=== PATIENT | male | born 1950 | race Caucasian/White ===

== ENCOUNTER 2022-02-14 10:36 | Inpatient (IN) | payer MEDICARE ==
[~2022-02-14] VITALS: Ht 175.3 cm; Wt 81.0 kg
[2022-02-14 12:01] LABS: INFLUENZA A PATIENT NEGATIVE (NEGATIVE); INFLUENZA B PATIENT NEGATIVE (NEGATIVE)
[2022-02-14 12:01] LABS: BASO # 0.1 x10^3/uL (0.0-0.2); BASO % 1 % (0-3); EOS # 0.4 x10^3/uL (0.0-0.7); EOS % 5 % (0-3); HEMOGLOBIN 15.2 g/dL (13.0-17.5); LYMPH # 2.1 x10^3/uL (1.0-4.8); LYMPH % 30 % (24-48); MEAN CORPUSCULAR HEMOGLOBIN 30 pg (25-35); MEAN CORPUSCULAR HGB CONC 34 g/dL (31-37); MEAN CORPUSCULAR VOLUME 89 fL (79-100); MONO # 0.4 x10^3/uL (0.0-1.1); MONO % 6 % (0-9); NEUT # 4.1 x10^3uL (1.8-7.7); NEUT % 58 % (31-73); PLATELET COUNT 197 x10^3/uL (140-400); RED BLOOD COUNT 5.06 x10^6/uL (4.30-5.70); RED CELL DISTRIBUTION WIDTH 14.4 % (11.5-14.5); WHITE BLOOD COUNT 7.1 x10^3/uL (4.0-11.0)
[2022-02-14 12:06] LABS: ANION GAP 13 (6-14); BLOOD UREA NITROGEN 16 mg/dL (8-26); BUN/CREATININE RATIO 15 (6-20); CALCIUM 9.5 mg/dL (8.5-10.1); CARBON DIOXIDE 25 mmol/L (21-32); CHLORIDE 104 mmol/L (98-107); CREATININE 1.1 mg/dL (0.7-1.3); GFR 65.6; GLUCOSE 208 mg/dL (70-99); POTASSIUM 4.6 mmol/L (3.5-5.1); SODIUM 142 mmol/L (136-145)
[2022-02-14 12:08] LABS: PHENY 0.8 mcg/mL (10.0-20.0)
[2022-02-14 12:14] LABS: VAL ACID < 3 mcg/mL (50-100)
[2022-02-14] MEDS ORDERED: ACET500T68 PO (12:17)
[2022-02-14] MEDS ORDERED: GABA-586 PO (12:17)
[2022-02-14] MEDS ORDERED: METF10007 PO (12:17)
[2022-02-14] MEDS ORDERED: [UNRECOGNIZED DRUG - CODE] PO (12:17)
[2022-02-14] MEDS ORDERED: CHOL10004 PO (12:17)
[2022-02-14] MEDS ORDERED: DIPH1TAB PO (12:17)
[2022-02-14] MEDS ORDERED: EMPA10TA3 PO (12:17)
[2022-02-14] MEDS ORDERED: NITR100C62 PO (12:17)
[2022-02-14] MEDS ORDERED: MULT-460 PO (12:17)
[2022-02-14] MEDS ORDERED: LISI40TA6 PO (12:17)
[2022-02-14] MEDS ORDERED: LOPE2TAB27 PO (12:17)
[2022-02-14] MEDS ORDERED: LOVA20TA2 PO (12:17)
[2022-02-14 12:24] LABS: ALBUMIN 3.9 g/dL (3.4-5.0); ALBUMIN/GLOBULIN RATIO 1.4 (1.0-1.7); ALK PHOS 81 U/L (46-116); ALT (SGPT) 61 U/L (16-63); AST (SGOT) 29 U/L (15-37); MAGNESIUM 2.2 mg/dL (1.8-2.4); TOTAL BILIRUBIN 0.6 mg/dL (0.2-1.0); TOTAL PROTEIN 6.7 g/dL (6.4-8.2)
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
[2022-02-14 13:04] LABS: CLARITY,URINE CLEAR; COLOR,URINE YELLOW; GLUCOSE,URINE >=1000 mg/dL (NEG)
[2022-02-14 13:05] LABS: BACTERIA,URINE 0 /HPF (0-FEW); NITRITE,URINE NEG (NEG); RBC,URINE RARE /HPF (0-2); UROBILINOGEN,URINE 0.2 mg/dL (0.2 mg/dL); WBC,URINE 0 /HPF (0-4)
[2022-02-14] MEDS ORDERED: ACETAMINOPHEN 500 MG TABLET PO PRN (14:30)
[2022-02-14] MEDS ORDERED: MAG HYDROX/AL HYDROX/SIMETH 30 ML ORAL.SUSP PO PRN (14:30)
[2022-02-14] MEDS ORDERED: METHYL SALICYLATE/MENTHOL TOPICAL OINTMENT 57GM TUBE. TP PRN (14:30)
[2022-02-14] MEDS ORDERED: DIPHENOXYLATE/ATROPINE TABLET. PO PRN (14:30)
[2022-02-14] MEDS ORDERED: MAGNESIUM HYDROXIDE 2,400 MG/30 ML ORAL.SUSP. PO PRN (14:30)
[2022-02-14] MEDS ORDERED: LOPERAMIDE 2 MG CAPSULE PO PRN (15:00)
[2022-02-14 16:44] VITALS: BP 129/68
[2022-02-14] MEDS: LACTASE 3,000 UNIT TABLET PO SCH (17:06)
[2022-02-14] MEDS: metFORMIN 500 MG TABLET PO SCH (17:07)
[2022-02-14] MEDS: GABAPENTIN 300 MG CAPSULE. PO SCH (17:07)
--- NOTE | 2022-02-14 20:33 | EKG ---
[address] [address] Test Date: 2022-02-14 Test Time: 10:55:15 Pat Name: SUKHJINDER REICH Department: Room: [address] [place] [address] Gender: M Top Knitter: : 1950 Requested By: CHRISTINE CLARK Order Number: [id number] Reading MD: Felipe Oquendo MD Measurements Intervals [place] Rate: 99 P: 45 ME: 144 QRS: 19 QRSD: 76 T: -2 QT: 322 QTc: 413 Interpretive Statements SINUS RHYTHM Electronically Signed On 02-18-2022 9:06:25 CDT by Felipe Oquendo MD
[2022-02-14] MEDS: ATORVASTATIN CALCIUM 10 MG TABLET. PO SCH (21:00)
[2022-02-14] MEDS ORDERED: NITROFURANTOIN MONOHYD/M-CRYST 100 MG CAPSULE. PO SCH (21:00)
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
[2022-02-15 02:10] LABS: THYROXINE 7.9 ug/dL (4.5-12.0)
[2022-02-15 04:10] LABS: HEMOGLOBIN A1C 8.2 % (4.8-5.6)
[2022-02-15 06:01] VITALS: BP 151/93
[2022-02-15] MEDS: MULTIVITAMIN with MINERAL TABLET. PO SCH (08:25)
[2022-02-15] MEDS: LACTASE 3,000 UNIT TABLET PO SCH ×3 (08:25→17:29)
[2022-02-15] MEDS: EMPAGLIFLOZIN 10 MG TABLET. PO SCH (08:25)
[2022-02-15] MEDS: CHOLECALCIFEROL (VITAMIN D3) 1,000 UNIT TABLET PO SCH (08:25)
[2022-02-15] MEDS: LISINOPRIL 20 MG TABLET PO SCH (08:25)
[2022-02-15] MEDS: metFORMIN 500 MG TABLET PO SCH ×2 (08:25→17:29)
[2022-02-15] MEDS: GABAPENTIN 300 MG CAPSULE. PO SCH ×3 (08:28→17:29)
[2022-02-15 15:00] VITALS: BP 125/77
[2022-02-15 19:29] LABS: PHENOBARB < 1.0 mcg/mL (15.0-40.0)
[2022-02-15 19:36] LABS: CHOLESTEROL/HDL RATIO 3.1; THYROID STIM HORMONE (TSH) 0.701 uIU/mL (0.358-3.740)
[2022-02-15] MEDS: ATORVASTATIN CALCIUM 10 MG TABLET. PO SCH (20:10)
--- NOTE | 2022-02-15 21:45 | PDOC ---
Exam Note: Leonidas Note: Late entry for 02/14/2022. Please also refer to the separate dictated note~for this date of service dictated separately.~Patient seen individually. Discussed the patient with Nursing staff reviewed the chart.~Reviewed interim history and current functioning. Reviewed vital signs,~Labs/ Radiology~and current medic ations noted below. Continue current treatment with the changes noted in the dictated addendum note Assessment: Vital Signs/I&O: Vital Signs Date Time Temp Pulse Resp B/P (MAP) Pulse Ox O2 Delivery O2 Flow Rate FiO2 02/15/22 08:25 85 151/93 02/15/22 06:01 98.5 20 96 Room Air I & O 02/14/22 02/14/22 02/15/22 15:00 23:00 07:00 Intake Total 380 ml Balance 380 ml Labs: Laboratory Tests Test 02/15/22 07:56 02/15/22 11:29 Glucose (Fingerstick) 175 mg/dL (70-99) H 194 mg/dL (70-99) H Current Medications: Meds: Current Medications Medications (Trade) Dose Ordered Sig/Hetal Route PRN Reason Start Time Stop Time Status Last Admin Dose Admin Vitamin D (Vitamin D3) 5,000 unit DAILY PO 02/15/22 09:00 02/15/22 08:25 Empaglifozin (Jardiance) 10 mg DAILY PO 02/15/22 09:00 02/15/22 08:25 Lisinopril (Prinivil) 40 mg DAILY PO 02/15/22 09:00 02/15/22 08:25 Multivitamins/ Calcium (Thera-M Plus) 1 tab DAILY PO 02/15/22 09:00 02/15/22 08:25 I have reviewed the current psychotropics carefully including drug interactions. Risk benefit ratio favors no change other than as noted in my dictated progress note. Diagnosis: Problems: (1) Psychotic disorder (2) Impulse control disorder ELADIO NUNEZ MD February 15, 2022 21:45
--- NOTE | 2022-02-15 21:46 | PDOC ---
Exam Note: Leonidas Note: Please also refer to the separate dictated note~for this date of service dictated separately.~Patient seen individually. Discussed the patient with Nursing staff reviewed the chart.~Reviewed interim history and current functioning. Reviewed vital signs,~Labs/ Radiology~and current medications noted below. Continue current treatment with the changes noted in the dictated addendum note Assessment: Vital Signs/I&O: Vital Signs Date Time Temp Pulse Resp B/P (MAP) Pulse Ox O2 Delivery O2 Flow Rate FiO2 02/15/22 08:25 85 151/93 02/15/22 06:01 98.5 20 96 Room Air I & O 02/14/22 02/14/22 02/15/22 15:00 23:00 07:00 Intake Total 380 ml Balance 380 ml Labs: Laboratory Tests Test 02/15/22 07:56 02/15/22 11:29 Glucose (Fingerstick) 175 mg/dL (70-99) H 194 mg/dL (70-99) H Current Medications: Meds: Current Medications Medications (Trade) Dose Ordered Sig/Hetal Route PRN Reason Start Time Stop Time Status Last Admin Dose Admin Vitamin D (Vitamin D3) 5,000 unit DAILY PO 02/15/22 09:00 02/15/22 08:25 Empaglifozin (Jardiance) 10 mg DAILY PO 02/15/22 09:00 02/15/22 08:25 Lisinopril (Prinivil) 40 mg DAILY PO 02/15/22 09:00 02/15/22 08:25 Multivitamins/ Calcium (Thera-M Plus) 1 tab DAILY PO 02/15/22 09:00 02/15/22 08:25 I have reviewed the current psychotropics carefully including drug interactions. Risk benefit ratio favors no change other than as noted in my dictated progress note. Diagnosis: Problems: (1) Impulse control disorder (2) Psychotic disorder ELADIO NUNEZ MD February 15, 2022 21:46
[2022-02-16 06:23] VITALS: BP 101/65
[2022-02-16] MEDS: GABAPENTIN 300 MG CAPSULE. PO SCH ×3 (08:24→17:01)
[2022-02-16] MEDS: LISINOPRIL 20 MG TABLET PO SCH (08:24)
[2022-02-16] MEDS: CHOLECALCIFEROL (VITAMIN D3) 1,000 UNIT TABLET PO SCH (08:24)
[2022-02-16] MEDS: LACTASE 3,000 UNIT TABLET PO SCH ×3 (08:25→17:01)
[2022-02-16] MEDS: metFORMIN 500 MG TABLET PO SCH ×2 (08:25→17:01)
[2022-02-16] MEDS: MULTIVITAMIN with MINERAL TABLET. PO SCH (08:25)
[2022-02-16] MEDS: EMPAGLIFLOZIN 10 MG TABLET. PO SCH (08:25)
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
[2022-02-16 15:00] VITALS: BP 124/73
[2022-02-16] MEDS: ATORVASTATIN CALCIUM 10 MG TABLET. PO SCH (20:23)
--- NOTE | 2022-02-16 22:13 | PDOC ---
Exam Note: Leonidas Note: This note is a late entry for 02/15/2022 covers elements not covered in my initial note. Subjective: The patient was reviewed at treatment team meeting individually in the morning on 02/15/2022 with Leighann Isaac, Lianne Baires (pediatric social worker), Yamilka, activity therapy, and Atiya SCHNEIDER, discussed and reviewed the chart. The patient slept 9-1/4 hours previous night. Reviewed the patients psychosocial history, diagnoses, current psychotropics medications at length. Reportedly the patient used to work as a recovery collector for the [email or web address] and he lost his leg on the job due to an injury. Apparently he is on Workmens Compensation as a history of developmental delay. There is a question whether he had a history of seizure disorder but this is not confirmed. There is notation in his history of an intracranial lesion but it was reportedly a benign tumor with no mass effects. UA was positive in the ER. He received Macrobid later, culture was negative. He remains on medications for his diabetes and hypertension. Also met with the patient individually in his room at length in the evening. Review of Systems: Hard of hearing. No CV, , pulmonary, eye, ENT system symptoms on review. Overall no overt behaviors have been noted including sexually inappropriate and also disruptive behaviors that prompted that referr al. Mental Status Exam: Patient is oriented to himself and situation. Speech is coherent. Abstraction fair. Computation impaired. Language function intact. Attention span short. Mood and affect remains somewhat gregarious but controlled. No suicidal or homicidal ideation. Laboratory Data: Reviewed. Impression: Major depressive disorder. Impulse control disorder rule out bipolar disorder unspecified. Plan: From a psychiatric standpoint, we will continue to monitor the patients baseline. He is on no psychotropics for now but we will Zyprexa 2.5 mg q.2h. p.r.n., psychosis and agitation, max 10 mg in 24 hours for now. If impulse control problems are problematic given his overall history noted above, we may consider using Depakote. We will make decisions post baseline assessment. Assessment: Vital Signs/I&O: Vital Signs Date Time Temp Pulse Resp B/P (MAP) Pulse Ox O2 Delivery O2 Flow Rate FiO2 02/16/22 15:00 97.5 82 20 124/73 (90) 94 Room Air I & O 02/15/22 02/15/22 02/16/22 15:00 23:00 07:00 Intake Total 1060 ml 720 ml Balance 1060 ml 720 ml Labs: Laboratory Tests Test 02/16/22 08:00 02/16/22 11:53 02/16/22 17:13 02/16/22 19:27 Glucose (Fingerstick) 199 mg/dL (70-99) H 181 mg/dL (70-99) H 219 mg/dL (70-99) H 220 mg/dL (70-99) H Current Medications: I have reviewed the current psychotropics carefully including drug interactions. Risk benefit ratio favors no change other than as noted in my dictated progress note. Diagnosis: Problems: (1) Impulse control disorder (2) Psychotic disorder (3) Major depressive disorder ELADIO NUNEZ MD February 16, 2022 22:13
--- NOTE | 2022-02-16 22:14 | PDOC ---
Exam Note: Leonidas Note: Please also refer to the separate dictated note~for this date of service dictated separately.~Patient seen individually. Discussed the patient with Nursing staff reviewed the chart.~Reviewed interim history and current functioning. Reviewed vital signs,~Labs/ Radiology~and current medications noted below. Continue current treatment with the changes noted in the dictated addendum note Assessment: Vital Signs/I&O: Vital Signs Date Time Temp Pulse Resp B/P (MAP) Pulse Ox O2 Delivery O2 Flow Rate FiO2 02/16/22 15:00 97.5 82 20 124/73 (90) 94 Room Air I & O 02/15/22 02/15/22 02/16/22 15:00 23:00 07:00 Intake Total 1060 ml 720 ml Balance 1060 ml 720 ml Labs: Laboratory Tests Test 02/16/22 08:00 02/16/22 11:53 02/16/22 17:13 02/16/22 19:27 Glucose (Fingerstick) 199 mg/dL (70-99) H 181 mg/dL (70-99) H 219 mg/dL (70-99) H 220 mg/dL (70-99) H Current Medications: Meds: Laboratory Tests Test 02/16/22 08:00 02/16/22 11:53 02/16/22 17:13 02/16/22 19:27 Glucose (Fingerstick) 199 mg/dL 181 mg/dL 219 mg/dL 220 mg/dL Current Medications Medications (Trade) Dose Ordered Sig/Hetal Route PRN Reason Start Time Stop Time Status Last Admin Dose Admin Multi-Ingredient Ointment (Analgesic [place]) 1 monik PRN QID PRN TP MUSCLE PAIN 02/14/22 14:30 Al Hydroxide/Mg Hydroxide (Mylanta Plus Xs) 15 ml PRN AFTMEALHC PRN PO DYSPEPSIA 02/14/22 14:30 Magnesium Hydroxide (Milk Of Magnesia) 2,400 mg PRN QHS PRN PO CONSTIPATION 02/14/22 14:30 Acetaminophen (Tylenol) 1,000 mg PRN Q6HRS PRN PO pain or fever 02/14/22 14:30 Vitamin D (Vitamin D3) 5,000 unit DAILY PO 02/15/22 09:00 02/16/22 08:24 Diphenoxylate HCl/ Atropine (Lomotil) 1 tab PRN Q6HRS PRN PO DIARRHEA 02/14/22 14:30 Empaglifozin (Jardiance) 10 mg DAILY PO 02/15/22 09:00 02/16/22 08:25 Gabapentin (Neurontin) 300 mg TIDWMEALS PO 02/14/22 17:00 02/16/22 17:01 Lactase (Lactaid) 3,000 unit TIDWMEALS PO 02/14/22 17:00 02/16/22 17:01 Nitrofurantoin Macrocrystals (Macrobid) 100 mg BID PO 02/14/22 21:00 02/14/22 16:16 DC Lisinopril (Prinivil) 40 mg DAILY PO 02/15/22 09:00 02/16/22 08:24 Loperamide HCl (Imodium) 2 mg PRN Q12HR PRN PO LOOSE STOOLS 02/14/22 15:00 Atorvastatin Calcium (Lipitor) 5 mg HS PO 02/14/22 21:00 02/16/22 20:23 Metformin HCl (Glucophage) 1,000 mg BIDWMEALS PO 02/14/22 17:00 02/16/22 17:01 Multivitamins/ Calcium (Thera-M Plus) 1 tab DAILY PO 02/15/22 09:00 02/16/22 08:25 Olanzapine (ZyPREXA ZYDIS) 2.5 mg PRN Q2HRS PRN PO PSYCHOSIS 02/15/22 17:30 Glimepiride (Amaryl) 2 mg DAILY PO 02/17/22 09:00 I have reviewed the current psychotropics carefully including drug interactions. Risk benefit ratio favors no change other than as noted in my dictated progress note. Diagnosis: Problems: (1) Impulse control disorder (2) Psychotic disorder (3) Major depressive disorder ELADIO NUNEZ MD February 16, 2022 22:14
[2022-02-17 06:10] VITALS: BP 147/86
[2022-02-17] MEDS: CHOLECALCIFEROL (VITAMIN D3) 1,000 UNIT TABLET PO SCH (09:01)
[2022-02-17] MEDS: MULTIVITAMIN with MINERAL TABLET. PO SCH (09:01)
[2022-02-17] MEDS: GLIMEPIRIDE 2 MG TABLET PO SCH (09:01)
[2022-02-17] MEDS: EMPAGLIFLOZIN 10 MG TABLET. PO SCH (09:01)
[2022-02-17] MEDS: GABAPENTIN 300 MG CAPSULE. PO SCH ×3 (09:02→17:16)
[2022-02-17] MEDS: LACTASE 3,000 UNIT TABLET PO SCH ×3 (09:02→17:16)
[2022-02-17] MEDS: metFORMIN 500 MG TABLET PO SCH ×2 (09:02→17:17)
[2022-02-17] MEDS: LISINOPRIL 20 MG TABLET PO SCH (09:02)
[2022-02-17 16:01] VITALS: BP 131/75
[2022-02-17] MEDS: ATORVASTATIN CALCIUM 10 MG TABLET. PO SCH (20:22)
--- NOTE | 2022-02-17 21:53 | PDOC ---
Exam Note: Leonidas Note: Please also refer to the separate dictated note~for this date of service dictated separately.~Patient seen individually. Discussed the patient with Nursing staff reviewed the chart.~Reviewed interim history and current functioning. Reviewed vital signs,~Labs/ Radiology~and current medications noted below. Continue current treatment with the changes noted in the dictated addendum note Assessment: Vital Signs/I&O: Vital Signs Date Time Temp Pulse Resp B/P (MAP) Pulse Ox O2 Delivery O2 Flow Rate FiO2 02/17/22 16:01 98.4 85 18 131/75 (93) 94 02/16/22 15:00 Room Air I & O 02/16/22 02/16/22 02/17/22 15:00 23:00 07:00 Intake Total 700 ml 540 ml Balance 700 ml 540 ml Labs: Laboratory Tests Test 02/17/22 08:16 02/17/22 11:54 Glucose (Fingerstick) 162 mg/dL (70-99) H 207 mg/dL (70-99) H Current Medications: Meds: Current Medications Medications (Trade) Dose Ordered Sig/Hetal Route PRN Reason Start Time Stop Time Status Last Admin Dose Admin Glimepiride (Amaryl) 2 mg DAILY PO 02/17/22 09:00 02/17/22 09:01 I have reviewed the current psychotropics carefully including drug interactions. Risk benefit ratio favors no change other than as noted in my dictated progress note. Diagnosis: Problems: (1) Impulse control disorder (2) Psychotic disorder (3) Major depressive disorder ELADIO NUNEZ MD February 17, 2022 21:53
[2022-02-18 06:00] VITALS: BP 124/78
[2022-02-18] MEDS: CHOLECALCIFEROL (VITAMIN D3) 1,000 UNIT TABLET PO SCH (08:19)
[2022-02-18] MEDS: MULTIVITAMIN with MINERAL TABLET. PO SCH (08:20)
[2022-02-18] MEDS: GABAPENTIN 300 MG CAPSULE. PO SCH ×3 (08:20→17:23)
[2022-02-18] MEDS: LISINOPRIL 20 MG TABLET PO SCH (08:20)
[2022-02-18] MEDS: GLIMEPIRIDE 2 MG TABLET PO SCH (08:20)
[2022-02-18] MEDS: LACTASE 3,000 UNIT TABLET PO SCH ×3 (08:20→17:23)
[2022-02-18] MEDS: metFORMIN 500 MG TABLET PO SCH ×2 (08:20→17:23)
[2022-02-18] MEDS: EMPAGLIFLOZIN 10 MG TABLET. PO SCH (08:20)
--- NOTE | 2022-02-18 08:35 | PDOC ---
Exam Note: Leonidas Note: This note is a late entry for 02/16/2022 covers elements not covered in my initial note. Subjective: The patient was seen individually on 02/16/2022, discussed and reviewed the chart with Atiya SCHNEIDER. The patient slept 7-1/4 hours previous night. Overall he remains withdrawn to his room. He has done great. He is moved to the regular hallway. Review of Systems: Ambulation impaired. Hard of hearing. No CV, , pulmonary, eye system symptoms on review. Mental Status Exam: Patient is oriented to himself and situation. Speech has some latency, coherent. Abstraction fair. Computation impaired. Language function intact. Mood and affect remains somewhat labile but generally reasonable. Laboratory Data: Reviewed. Impression: Major depressive disorder. Impulse control disorder rule out bipolar disorder unspecified. Plan: Continue current psychotropics mentioned in my initial note. Observe baseline. Adjust as clinically indicated. Assessment: Vital Signs/I&O: Vital Signs Date Time Temp Pulse Resp B/P (MAP) Pulse Ox O2 Delivery O2 Flow Rate FiO2 02/18/22 08:20 78 124/78 02/18/22 06:00 97.7 20 97 Room Air I & O 02/17/22 02/17/22 02/18/22 15:00 23:00 07:00 Intake Total 720 ml 600 ml Balance 720 ml 600 ml Labs: Laboratory Tests Test 02/17/22 11:54 02/18/22 08:07 Glucose (Fingerstick) 207 mg/dL (70-99) H 180 mg/dL (70-99) H Current Medications: Meds: Current Medications Medications (Trade) Dose Ordered Sig/Hetal Route PRN Reason Start Time Stop Time Status Last Admin Dose Admin Glimepiride (Amaryl) 2 mg DAILY PO 02/17/22 09:00 02/18/22 08:20 I have reviewed the current psychotropics carefully including drug interactions. Risk benefit ratio favors no change other than as noted in my dictated progress note. Diagnosis: Problems: (1) Impulse control disorder (2) Psychotic disorder (3) Major depressive disorder ELADIO NUNEZ MD February 18, 2022 08:35
--- NOTE | 2022-02-18 09:05 | PDOC ---
Exam Note: Leonidas Note: This note is a late entry for 02/17/2022 covers elements not covered in my initial note. Subjective: The patient was seen individually on 02/17/2022, discussed and reviewed the chart with Sandra SCHNEIDER. The patient slept 7-1/2 hours previous night. I met with the patient in his room. He is now on the regular hallway. No agitation, aggression, or sexually inappropriate behaviors noted. Review of Systems: Ambulation impaired. Hard of hearing. No CV, , pulmonary, eye system symptoms on review. Mental Status Exam: Patient is oriented to himself and situation. Speech has some latency, coherent. Abstraction fair. Computation impaired. Language function intact. Mood and affect improved. Laboratory Data: Reviewed. Impression: Major depressive disorder. Impulse control disorder rule out bipolar disorder unspecified. Plan: Continue current psychotropics mentioned in my initial note. Adjust as clinically indicated. Continue to observe baseline before making a decision on psychotropics. Assessment: Vital Signs/I&O: Vital Signs Date Time Temp Pulse Resp B/P (MAP) Pulse Ox O2 Delivery O2 Flow Rate FiO2 02/18/22 08:20 78 124/78 02/18/22 06:00 97.7 20 97 Room Air I & O 02/17/22 02/17/22 02/18/22 15:00 23:00 07:00 Intake Total 720 ml 600 ml Balance 720 ml 600 ml Labs: Laboratory Tests Test 02/17/22 11:54 02/18/22 08:07 Glucose (Fingerstick) 207 mg/dL (70-99) H 180 mg/dL (70-99) H Current Medications: I have reviewed the current psychotropics carefully including drug interactions. Risk benefit ratio favors no change other than as noted in my dictated progress note. Diagnosis: Problems: (1) Impulse control disorder (2) Psychotic disorder (3) Major depressive disorder ELADIO NUNEZ MD February 18, 2022 09:05
[2022-02-18 16:09] VITALS: BP 126/72
[2022-02-18] MEDS: ATORVASTATIN CALCIUM 10 MG TABLET. PO SCH (20:51)
--- NOTE | 2022-02-18 21:31 | PDOC ---
Exam Note: Leonidas Note: Please also refer to the separate dictated note~for this date of service dictated separately.~Patient seen individually. Discussed the patient with Nursing staff reviewed the chart.~Reviewed interim history and current functioning. Reviewed vital signs,~Labs/ Radiology~and current medications noted below. Continue current treatment with the changes noted in the dictated addendum note Assessment: Vital Signs/I&O: Vital Signs Date Time Temp Pulse Resp B/P (MAP) Pulse Ox O2 Delivery O2 Flow Rate FiO2 02/18/22 16:09 97.1 86 18 126/72 (90) 94 Room Air I & O 02/17/22 02/17/22 02/18/22 15:00 23:00 07:00 Intake Total 720 ml 600 ml Balance 720 ml 600 ml Labs: Laboratory Tests Test 02/18/22 08:07 02/18/22 19:56 Glucose (Fingerstick) 180 mg/dL (70-99) H 211 mg/dL (70-99) H Current Medications: Meds: Laboratory Tests Test 02/18/22 08:07 02/18/22 19:56 Glucose (Fingerstick) 180 mg/dL 211 mg/dL Current Medications Medications (Trade) Dose Ordered Sig/Hetal Route PRN Reason Start Time Stop Time Status Last Admin Dose Admin Multi-Ingredient Ointment (Analgesic [place]) 1 monik PRN QID PRN TP MUSCLE PAIN 02/14/22 14:30 Al Hydroxide/Mg Hydroxide (Mylanta Plus Xs) 15 ml PRN AFTMEALHC PRN PO DYSPEPSIA 02/14/22 14:30 Magnesium Hydroxide (Milk Of Magnesia) 2,400 mg PRN QHS PRN PO CONSTIPATION 02/14/22 14:30 Acetaminophen (Tylenol) 1,000 mg PRN Q6HRS PRN PO pain or fever 02/14/22 14:30 Vitamin D (Vitamin D3) 5,000 unit DAILY PO 02/15/22 09:00 02/18/22 08:19 Diphenoxylate HCl/ Atropine (Lomotil) 1 tab PRN Q6HRS PRN PO 2ND CHOICE DIARRHEA 02/14/22 14:30 Empaglifozin (Jardiance) 10 mg DAILY PO 02/15/22 09:00 02/18/22 08:20 Gabapentin (Neurontin) 300 mg TIDWMEALS PO 02/14/22 17:00 02/18/22 17:23 Lactase (Lactaid) 3,000 unit TIDWMEALS PO 02/14/22 17:00 02/18/22 17:23 Nitrofurantoin Macrocrystals (Macrobid) 100 mg BID PO 02/14/22 21:00 02/14/22 16:16 DC Lisinopril (Prinivil) 40 mg DAILY PO 02/15/22 09:00 02/18/22 08:20 Loperamide HCl (Imodium) 2 mg PRN Q12HR PRN PO 1ST CHOICE LOOSE STOOLS 02/14/22 15:00 Atorvastatin Calcium (Lipitor) 5 mg HS PO 02/14/22 21:00 02/18/22 20:51 Metformin HCl (Glucophage) 1,000 mg BIDWMEALS PO 02/14/22 17:00 02/18/22 17:23 Multivitamins/ Calcium (Thera-M Plus) 1 tab DAILY PO 02/15/22 09:00 02/18/22 08:20 Olanzapine (ZyPREXA ZYDIS) 2.5 mg PRN Q2HRS PRN PO PSYCHOSIS 02/15/22 17:30 Glimepiride (Amaryl) 2 mg DAILY PO 02/17/22 09:00 02/18/22 08:20 I have reviewed the current psychotropics carefully including drug interactions. Risk benefit ratio favors no change other than as noted in my dictated progress note. Diagnosis: Problems: (1) Impulse control disorder (2) Psychotic disorder (3) Major depressive disorder ELADIO NUNEZ MD February 18, 2022 21:31
[2022-02-19 06:16] VITALS: BP 122/75
[2022-02-19] MEDS: CHOLECALCIFEROL (VITAMIN D3) 1,000 UNIT TABLET PO SCH (08:15)
[2022-02-19] MEDS: GLIMEPIRIDE 2 MG TABLET PO SCH (08:15)
[2022-02-19] MEDS: metFORMIN 500 MG TABLET PO SCH ×2 (08:15→17:14)
[2022-02-19] MEDS: LISINOPRIL 20 MG TABLET PO SCH (08:15)
[2022-02-19] MEDS: LACTASE 3,000 UNIT TABLET PO SCH ×3 (08:15→17:14)
[2022-02-19] MEDS: MULTIVITAMIN with MINERAL TABLET. PO SCH (08:15)
[2022-02-19] MEDS: EMPAGLIFLOZIN 10 MG TABLET. PO SCH (08:15)
[2022-02-19] MEDS: GABAPENTIN 300 MG CAPSULE. PO SCH ×3 (08:15→17:14)
--- NOTE | 2022-02-19 08:43 | PDOC ---
Exam Note: Leonidas Note: This note is a late entry for 02/18/2022 covers elements not covered in my initial note. Subjective: The patient was seen individually on 02/18/2022, discussed and reviewed the chart with Amanda SCHNEIDER. The patient slept 8 hours previous night. He was seen individually in his room. He has been fairly appropriate, somewhat loud and impulsive. I met with him in his room. Review of Systems: Ambulation impaired. Hard of hearing. No CV, , pulmonary, eye system symptoms on review. Mental Status Exam: Patient is oriented to himself and situation. Speech has some latency, coherent. Abstraction fair. Computation impaired. Language function intact. Mood and affect improved. Laboratory Data: Reviewed. Impression: Major depressive disorder. Impulse control disorder rule out bipolar disorder unspecified. Plan: Continue current psychotropics mentioned in my initial note. Adjust as clinically indicated. We have considered adding SSRIs to help with his anxiety, obsessiveness but for now he is doing reasonably well behaviorally and we will not add anything unless we see some symptoms to justify it. Assessment: Vital Signs/I&O: Vital Signs Date Time Temp Pulse Resp B/P (MAP) Pulse Ox O2 Delivery O2 Flow Rate FiO2 02/19/22 08:15 76 122/75 02/19/22 06:16 96.9 18 91 Room Air I & O 02/18/22 02/18/22 02/19/22 15:00 23:00 07:00 Intake Total 600 ml 390 ml Balance 600 ml 390 ml Labs: Laboratory Tests Test 02/18/22 19:56 02/19/22 07:31 Glucose (Fingerstick) 211 mg/dL (70-99) H 136 mg/dL (70-99) H Current Medications: I have reviewed the current psychotropics carefully including drug interactions. Risk benefit ratio favors no change other than as noted in my dictated progress note. Diagnosis: Problems: (1) Impulse control disorder (2) Psychotic disorder (3) Major depressive disorder ELADIO NUNEZ MD February 19, 2022 08:43
[2022-02-19 16:22] VITALS: BP 116/71
[2022-02-19] MEDS: ATORVASTATIN CALCIUM 10 MG TABLET. PO SCH (20:41)
--- NOTE | 2022-02-19 21:34 | PDOC ---
Exam Note: Leonidas Note: Please also refer to the separate dictated note~for this date of service dictated separately.~Patient seen individually. Discussed the patient with Nursing staff reviewed the chart.~Reviewed interim history and current functioning. Reviewed vital signs,~Labs/ Radiology~and current medications noted below. Continue current treatment with the changes noted in the dictated addendum note Assessment: Vital Signs/I&O: Vital Signs Date Time Temp Pulse Resp B/P (MAP) Pulse Ox O2 Delivery O2 Flow Rate FiO2 02/19/22 16:22 98.3 76 20 116/71 (86) 95 Room Air I & O 02/18/22 02/18/22 02/19/22 15:00 23:00 07:00 Intake Total 600 ml 390 ml Balance 600 ml 390 ml Labs: Laboratory Tests Test 02/19/22 07:31 02/19/22 09:00 02/19/22 17:06 Glucose (Fingerstick) 136 mg/dL (70-99) H 131 mg/dL (70-99) H POC SARS CoV-2 Antigen Negative (NEGATIVE) Current Medications: Meds: Laboratory Tests Test 02/19/22 07:31 02/19/22 09:00 02/19/22 17:06 Glucose (Fingerstick) 136 mg/dL 131 mg/dL POC SARS CoV-2 Antigen Negative Current Medications Medications (Trade) Dose Ordered Sig/Hetal Route PRN Reason Start Time Stop Time Status Last Admin Dose Admin Multi-Ingredient Ointment (Analgesic [place]) 1 monik PRN QID PRN TP MUSCLE PAIN 02/14/22 14:30 Al Hydroxide/Mg Hydroxide (Mylanta Plus Xs) 15 ml PRN AFTMEALHC PRN PO DYSPEPSIA 02/14/22 14:30 Magnesium Hydroxide (Milk Of Magnesia) 2,400 mg PRN QHS PRN PO CONSTIPATION 02/14/22 14:30 Acetaminophen (Tylenol) 1,000 mg PRN Q6HRS PRN PO pain or fever 02/14/22 14:30 Vitamin D (Vitamin D3) 5,000 unit DAILY PO 02/15/22 09:00 02/19/22 08:15 Diphenoxylate HCl/ Atropine (Lomotil) 1 tab PRN Q6HRS PRN PO 2ND CHOICE DIARRHEA 02/14/22 14:30 Empaglifozin (Jardiance) 10 mg DAILY PO 02/15/22 09:00 02/19/22 08:15 Gabapentin (Neurontin) 300 mg TIDWMEALS PO 02/14/22 17:00 02/19/22 17:14 Lactase (Lactaid) 3,000 unit TIDWMEALS PO 02/14/22 17:00 02/19/22 17:14 Nitrofurantoin Macrocrystals (Macrobid) 100 mg BID PO 02/14/22 21:00 02/14/22 16:16 DC Lisinopril (Prinivil) 40 mg DAILY PO 02/15/22 09:00 02/19/22 08:15 Loperamide HCl (Imodium) 2 mg PRN Q12HR PRN PO 1ST CHOICE LOOSE STOOLS 02/14/22 15:00 Atorvastatin Calcium (Lipitor) 5 mg HS PO 02/14/22 21:00 02/19/22 20:41 Metformin HCl (Glucophage) 1,000 mg BIDWMEALS PO 02/14/22 17:00 02/19/22 17:14 Multivitamins/ Calcium (Thera-M Plus) 1 tab DAILY PO 02/15/22 09:00 02/19/22 08:15 Olanzapine (ZyPREXA ZYDIS) 2.5 mg PRN Q2HRS PRN PO PSYCHOSIS 02/15/22 17:30 Glimepiride (Amaryl) 2 mg DAILY PO 02/17/22 09:00 02/19/22 08:15 I have reviewed the current psychotropics carefully including drug interactions. Risk benefit ratio favors no change other than as noted in my dictated progress note. Diagnosis: Problems: (1) Impulse control disorder (2) Psychotic disorder (3) Major depressive disorder ELADIO NUNEZ MD February 19, 2022 21:34
[2022-02-20 06:12] VITALS: BP 134/77
[2022-02-20] MEDS: MULTIVITAMIN with MINERAL TABLET. PO SCH (08:07)
[2022-02-20] MEDS: LACTASE 3,000 UNIT TABLET PO SCH ×3 (08:07→16:28)
[2022-02-20] MEDS: CHOLECALCIFEROL (VITAMIN D3) 1,000 UNIT TABLET PO SCH (08:07)
[2022-02-20] MEDS: GABAPENTIN 300 MG CAPSULE. PO SCH ×3 (08:07→16:28)
[2022-02-20] MEDS: GLIMEPIRIDE 2 MG TABLET PO SCH (08:07)
[2022-02-20] MEDS: metFORMIN 500 MG TABLET PO SCH ×2 (08:07→16:28)
[2022-02-20] MEDS: EMPAGLIFLOZIN 10 MG TABLET. PO SCH (08:08)
[2022-02-20] MEDS: LISINOPRIL 20 MG TABLET PO SCH (08:08)
--- NOTE | 2022-02-20 08:55 | PDOC ---
Exam Note: Leonidas Note: This note is a late entry for 02/19/2022 covers elements not covered in my initial note. Subjective: The patient was seen individually on 02/19/2022, discussed and reviewed the chart with Amanda SCHNEIDER. There has been Covid exposure on the unit and the unit has been placed on quarantine as determined by Infectious Disease Department. The patient slept 6-1/4 hours previous night. Overall he has been doing reasonably well. I met with him in the dayroom. He is convinced that he came for surgery, has been here 5 days and since he has not had surgery, he wants to return back. I tried to process this with him with very little patience and insight. Review of Systems: Ambulation impaired, in wheelchair. Hard of hearing. No CV, , pulmonary, eye system symptoms on review. Mental Status Exam: Patient is oriented to himself and situation. Speech is rapid, somewhat loud at times, disinhibited but not agitated or aggressive, confused about his surgery. Abstraction fair. Computation impaired. Language function intact. Mood and affect improved. Laboratory Data: Reviewed. Impression: Major depressive disorder. Impulse control disorder rule out bipolar disorder unspecified. Plan: Continue current psychotropics mentioned in my initial note. Adjust as clinically indicated. Assessment: Vital Signs/I&O: Vital Signs Date Time Temp Pulse Resp B/P (MAP) Pulse Ox O2 Delivery O2 Flow Rate FiO2 02/20/22 08:08 74 134/77 02/20/22 06:12 97.8 20 95 Room Air I & O 02/19/22 02/19/22 02/20/22 14:59 22:59 06:59 Intake Total 600 ml 480 ml Balance 600 ml 480 ml Labs: Laboratory Tests Test 02/19/22 09:00 02/19/22 17:06 02/20/22 07:30 POC SARS CoV-2 Antigen Negative (NEGATIVE) Glucose (Fingerstick) 131 mg/dL (70-99) H 117 mg/dL (70-99) H Current Medications: I have reviewed the current psychotropics carefully including drug interactions. Risk benefit ratio favors no change other than as noted in my dictated progress note. Diagnosis: Problems: (1) Impulse control disorder (2) Psychotic disorder (3) Major depressive disorder ELADIO NUNEZ MD February 20, 2022 08:54
[2022-02-20 16:50] VITALS: BP 111/70
[2022-02-20] MEDS: ATORVASTATIN CALCIUM 10 MG TABLET. PO SCH (20:34)
--- NOTE | 2022-02-20 21:56 | PDOC ---
Exam Note: Leonidas Note: Please also refer to the separate dictated note~for this date of service dictated separately.~Patient seen individually. Discussed the patient with Nursing staff reviewed the chart.~Reviewed interim history and current functioning. Reviewed vital signs,~Labs/ Radiology~and current medications noted below. Continue current treatment with the changes noted in the dictated addendum note Assessment: Vital Signs/I&O: Vital Signs Date Time Temp Pulse Resp B/P (MAP) Pulse Ox O2 Delivery O2 Flow Rate FiO2 02/20/22 16:50 97.6 90 18 111/70 (84) 93 02/20/22 06:12 Room Air I & O 02/19/22 02/19/22 02/20/22 15:00 23:00 07:00 Intake Total 600 ml 480 ml Balance 600 ml 480 ml Labs: Laboratory Tests Test 02/20/22 07:30 02/20/22 17:04 02/20/22 19:10 Glucose (Fingerstick) 117 mg/dL (70-99) H 145 mg/dL (70-99) H 193 mg/dL (70-99) H Current Medications: Meds: Laboratory Tests Test 02/20/22 07:30 02/20/22 17:04 02/20/22 19:10 Glucose (Fingerstick) 117 mg/dL 145 mg/dL 193 mg/dL Current Medications Medications (Trade) Dose Ordered Sig/Hetal Route PRN Reason Start Time Stop Time Status Last Admin Dose Admin Multi-Ingredient Ointment (Analgesic [place]) 1 monik PRN QID PRN TP MUSCLE PAIN 02/14/22 14:30 Al Hydroxide/Mg Hydroxide (Mylanta Plus Xs) 15 ml PRN AFTMEALHC PRN PO DYSPEPSIA 02/14/22 14:30 Magnesium Hydroxide (Milk Of Magnesia) 2,400 mg PRN QHS PRN PO CONSTIPATION 02/14/22 14:30 Acetaminophen (Tylenol) 1,000 mg PRN Q6HRS PRN PO pain or fever 02/14/22 14:30 Vitamin D (Vitamin D3) 5,000 unit DAILY PO 02/15/22 09:00 02/20/22 08:07 Diphenoxylate HCl/ Atropine (Lomotil) 1 tab PRN Q6HRS PRN PO 2ND CHOICE DIARRHEA 02/14/22 14:30 Empaglifozin (Jardiance) 10 mg DAILY PO 02/15/22 09:00 02/20/22 08:08 Gabapentin (Neurontin) 300 mg TIDWMEALS PO 02/14/22 17:00 02/20/22 16:28 Lactase (Lactaid) 3,000 unit TIDWMEALS PO 02/14/22 17:00 02/20/22 16:28 Nitrofurantoin Macrocrystals (Macrobid) 100 mg BID PO 02/14/22 21:00 02/14/22 16:16 DC Lisinopril (Prinivil) 40 mg DAILY PO 02/15/22 09:00 02/20/22 08:08 Loperamide HCl (Imodium) 2 mg PRN Q12HR PRN PO 1ST CHOICE LOOSE STOOLS 02/14/22 15:00 Atorvastatin Calcium (Lipitor) 5 mg HS PO 02/14/22 21:00 02/20/22 20:34 Metformin HCl (Glucophage) 1,000 mg BIDWMEALS PO 02/14/22 17:00 02/20/22 16:28 Multivitamins/ Calcium (Thera-M Plus) 1 tab DAILY PO 02/15/22 09:00 02/20/22 08:07 Olanzapine (ZyPREXA ZYDIS) 2.5 mg PRN Q2HRS PRN PO PSYCHOSIS 02/15/22 17:30 Glimepiride (Amaryl) 2 mg DAILY PO 02/17/22 09:00 02/20/22 08:07 I have reviewed the current psychotropics carefully including drug interactions. Risk benefit ratio favors no change other than as noted in my dictated progress note. Diagnosis: Problems: (1) Impulse control disorder (2) Psychotic disorder (3) Major depressive disorder ELADIO NUNEZ MD February 20, 2022 21:56
[2022-02-21 06:22] VITALS: BP 158/84
[2022-02-21] MEDS: LACTASE 3,000 UNIT TABLET PO SCH ×3 (07:55→16:21)
[2022-02-21] MEDS: MULTIVITAMIN with MINERAL TABLET. PO SCH (07:55)
[2022-02-21] MEDS: metFORMIN 500 MG TABLET PO SCH ×2 (07:55→16:21)
[2022-02-21] MEDS: GABAPENTIN 300 MG CAPSULE. PO SCH ×3 (07:55→16:21)
[2022-02-21] MEDS: EMPAGLIFLOZIN 10 MG TABLET. PO SCH (07:56)
[2022-02-21] MEDS: GLIMEPIRIDE 2 MG TABLET PO SCH (07:56)
[2022-02-21] MEDS: LISINOPRIL 20 MG TABLET PO SCH (07:56)
--- NOTE | 2022-02-21 08:39 | PDOC ---
Exam Note: Leonidas Note: This note is a late entry for 02/20/2022 covers elements not covered in my initial note. Subjective: The patient was seen individually on 02/20/2022, discussed and reviewed the chart with Susanne SCHNEIDER. There has been Covid exposure on the unit and the unit has been placed on quarantine as determined by Infectious Disease Department. The patient slept 7-3/4 hours previous night. Overall he has done better, pleasant. I met with him in the dining room and then in his room. He remains cooperative, no aggression, obsessing about discharge, states he has not seen the doctor since Friday. I have been in fact seeing him every day Review of Systems: Ambulation impaired, in wheelchair. Hard of hearing. No CV, , pulmonary, eye system symptoms on review. Mental Status Exam: Patient is oriented to himself and situation. Speech is rapid. Abstraction fair. Computation impaired. Language function intact. Mood and affect improved. He seems to have some short-term memory deficits. Laboratory Data: Reviewed. Impression: Major depressive disorder. Impulse control disorder rule out bipolar disorder unspecified. Plan: Continue current psychotropics mentioned in my initial note. Adjust as clinically indicated. Assessment: Vital Signs/I&O: Vital Signs Date Time Temp Pulse Resp B/P (MAP) Pulse Ox O2 Delivery O2 Flow Rate FiO2 02/21/22 07:56 86 158/84 02/21/22 06:22 97.0 18 95 02/20/22 06:12 Room Air I & O 02/20/22 02/20/22 02/21/22 15:00 23:00 07:00 Intake Total 600 ml 480 ml Balance 600 ml 480 ml Labs: Laboratory Tests Test 02/20/22 17:04 02/20/22 19:10 02/21/22 07:50 Glucose (Fingerstick) 145 mg/dL (70-99) H 193 mg/dL (70-99) H 134 mg/dL (70-99) H Current Medications: I have reviewed the current psychotropics carefully including drug interactions. Risk benefit ratio favors no change other than as noted in my dictated progress note. Diagnosis: Problems: (1) Impulse control disorder (2) Psychotic disorder (3) Major depressive disorder ELADIO NUNEZ MD February 21, 2022 08:39
[2022-02-21] MEDS: CHOLECALCIFEROL (VITAMIN D3) 1,000 UNIT TABLET PO SCH (09:00)
[2022-02-21 16:46] VITALS: BP 130/76
[2022-02-21] MEDS: DIVALPROEX ER 500 MG TAB.ER.24H PO SCH (20:29)
[2022-02-21] MEDS: ATORVASTATIN CALCIUM 10 MG TABLET. PO SCH (20:30)
--- NOTE | 2022-02-21 21:06 | PDOC ---
Exam Note: Leonidas Note: Please also refer to the separate dictated note~for this date of service dictated separately.~Patient seen individually. Discussed the patient with Nursing staff reviewed the chart.~Reviewed interim history and current functioning. Reviewed vital signs,~Labs/ Radiology~and current medications noted below. Continue current treatment with the changes noted in the dictated addendum note Assessment: Vital Signs/I&O: Vital Signs Date Time Temp Pulse Resp B/P (MAP) Pulse Ox O2 Delivery O2 Flow Rate FiO2 02/21/22 16:46 97.8 82 16 130/76 (94) 95 02/20/22 06:12 Room Air I & O 02/20/22 02/20/22 02/21/22 15:00 23:00 07:00 Intake Total 600 ml 480 ml Balance 600 ml 480 ml Labs: Laboratory Tests Test 02/21/22 07:50 02/21/22 19:20 Glucose (Fingerstick) 134 mg/dL (70-99) H 176 mg/dL (70-99) H Current Medications: Meds: Laboratory Tests Test 02/21/22 07:50 02/21/22 19:20 Glucose (Fingerstick) 134 mg/dL 176 mg/dL Current Medications Medications (Trade) Dose Ordered Sig/Hetal Route PRN Reason Start Time Stop Time Status Last Admin Dose Admin Multi-Ingredient Ointment (Analgesic [place]) 1 monik PRN QID PRN TP MUSCLE PAIN 02/14/22 14:30 Al Hydroxide/Mg Hydroxide (Mylanta Plus Xs) 15 ml PRN AFTMEALHC PRN PO DYSPEPSIA 02/14/22 14:30 Magnesium Hydroxide (Milk Of Magnesia) 2,400 mg PRN QHS PRN PO CONSTIPATION 02/14/22 14:30 Acetaminophen (Tylenol) 1,000 mg PRN Q6HRS PRN PO pain or fever 02/14/22 14:30 Vitamin D (Vitamin D3) 5,000 unit DAILY PO 02/15/22 09:00 02/21/22 17:01 DC 02/20/22 08:07 Diphenoxylate HCl/ Atropine (Lomotil) 1 tab PRN Q6HRS PRN PO 2ND CHOICE DIARRHEA 02/14/22 14:30 Empaglifozin (Jardiance) 10 mg DAILY PO 02/15/22 09:00 02/21/22 07:56 Gabapentin (Neurontin) 300 mg TIDWMEALS PO 02/14/22 17:00 02/21/22 16:21 Lactase (Lactaid) 3,000 unit TIDWMEALS PO 02/14/22 17:00 02/21/22 16:21 Nitrofurantoin Macrocrystals (Macrobid) 100 mg BID PO 02/14/22 21:00 02/14/22 16:16 DC Lisinopril (Prinivil) 40 mg DAILY PO 02/15/22 09:00 02/21/22 07:56 Loperamide HCl (Imodium) 2 mg PRN Q12HR PRN PO 1ST CHOICE LOOSE STOOLS 02/14/22 15:00 Atorvastatin Calcium (Lipitor) 5 mg HS PO 02/14/22 21:00 02/21/22 20:30 Metformin HCl (Glucophage) 1,000 mg BIDWMEALS PO 02/14/22 17:00 02/21/22 16:21 Multivitamins/ Calcium (Thera-M Plus) 1 tab DAILY PO 02/15/22 09:00 02/21/22 07:55 Olanzapine (ZyPREXA ZYDIS) 2.5 mg PRN Q2HRS PRN PO PSYCHOSIS 02/15/22 17:30 Glimepiride (Amaryl) 2 mg DAILY PO 02/17/22 09:00 02/21/22 07:56 Sertraline HCl (Zoloft) 25 mg DAILY PO 02/22/22 09:00 02/24/22 23:50 Sertraline HCl (Zoloft) 50 mg DAILY PO 02/25/22 09:00 Divalproex Sodium (Depakote Er) 500 mg HS PO 02/21/22 21:00 02/21/22 20:29 Vitamin D (Vitamin D3) 50,000 unit WEEKLY PO 02/28/22 09:00 Current Medications Medications (Trade) Dose Ordered Sig/Hetal Route PRN Reason Start Time Stop Time Status Last Admin Dose Admin Divalproex Sodium (Depakote Er) 500 mg HS PO 02/21/22 21:00 02/21/22 20:29 I have reviewed the current psychotropics carefully including drug interactions. Risk benefit ratio favors no change other than as noted in my dictated progress note. Diagnosis: Problems: (1) Impulse control disorder (2) Psychotic disorder (3) Major depressive disorder ELADIO NUNEZ MD February 21, 2022 21:06
[2022-02-22 06:32] VITALS: BP 136/84
[2022-02-22] MEDS: LACTASE 3,000 UNIT TABLET PO SCH ×3 (07:27→17:23)
[2022-02-22] MEDS: EMPAGLIFLOZIN 10 MG TABLET. PO SCH (07:27)
[2022-02-22] MEDS: metFORMIN 500 MG TABLET PO SCH ×2 (07:27→17:23)
[2022-02-22] MEDS: GABAPENTIN 300 MG CAPSULE. PO SCH ×3 (07:27→17:23)
[2022-02-22] MEDS: SERTRALINE 25 MG TABLET. PO SCH (07:27)
[2022-02-22] MEDS: MULTIVITAMIN with MINERAL TABLET. PO SCH (07:27)
[2022-02-22] MEDS: LISINOPRIL 20 MG TABLET PO SCH (07:28)
[2022-02-22] MEDS: GLIMEPIRIDE 2 MG TABLET PO SCH (07:28)
--- NOTE | 2022-02-22 10:35 | TX PLAN ---
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 Additional Admission Comments: According to the intake, pt is angry, yelling at peers, inappropriate grabbing a female's breast, threating to harm peers Problems Active Problems: withdrawn to room Inactive Problems: Medication compliant Compliant with all cares/staff direction Pt Strengths/Limitations Ability for [place]: Poor Cognitive Functioning/Ability: Fair Communication Skills/Ability: Fair Financial Resources: Fair Insight/Judgement: Poor Intellectual Ability: Fair Physical Health: Fair Social Skills: Poor Stability in Family: Good Stability in School/Work: Poor Verbal Skills: Fair Discharge Criteria Discharge Criteria: No need for close observ., Adequate arrangements @DC, Improved behavior, Improved mood/thought Preliminary Discharge Plan Preliminary DC Plan: Current Living Arrange. Special Precautions Fall Risk: Low Initial D/C Plan Pt to return to [facility] once stable. Identified Discharge Needs: Psychiatric follow-up Currently Utilized Resources Currently Utilized Resources/P: PCP Identified Problems/Hx/Goals Objectives/Short-Term Goals Short Term Goals: Dec. Outbursts, Improved Social Skills, Medication Stabilization, Promote Coping Skill Short Term Goals in Patient's: Behavior and Medication Mgmt Interventions/Frequency Staff Interventions/Frequency&: Psychiatrist to assess pt at least 3x per week for medication management. Social Work to assess pt at least 2x per week to identify barriers to care and discharge planning. Nursing to assess medication effects, initiate behavior modification and complete 15 minute checks daily. Encourage participation in group activities (if applicable) or 1:1 engagement based of Activity Dept goals. History Vocational History: Worked for the [employer] for >30 years on a [employer] Education: Pt did graduate high school from [employer] (12th grade) Community Follow-up PCP Treatment Plan Explained Patient/Metal Roaster had this treatment plan explained to him/her as indicated by the signature below and has been given the opportunity to ask questions and make suggestions: Date: Patient/Metal Roaster Signature: Status Update Update Pt sister in law/DPOA, Calista, participated in treatment team via phone. Pt is eating 100% of meals and sleeping on average 7.25 hours per night. Pt has not had any disruptive or aggressive behaviors; however, has been withdrawn to his room noting that he does not want to "sit with the old people". Pt did attend one group yesterday and appeared to do well; he even requested to listen to Gerri Harden. Pt has not been placed on any psychiatric medications; however, based off his sister in laws reports, he does have an extensive history. Therefore, pt will be placed on Depakote ER 500mg at HS with labs/levels in three days and Zoloft 25mg q 3 days. then increase to 50mg daily. Pt will plan to return to [facility] once stable. OTIS for the middle to the end of next week. WENDY RUEDA February 22, 2022 10:35
[2022-02-22 16:27] VITALS: BP 142/82
[2022-02-22] MEDS: ATORVASTATIN CALCIUM 10 MG TABLET. PO SCH (20:00)
[2022-02-22] MEDS: DIVALPROEX ER 500 MG TAB.ER.24H PO SCH (20:00)
--- NOTE | 2022-02-22 21:48 | PDOC ---
Exam Note: Leonidas Note: This note is a late entry for 02/21/2022 covers elements not covered in my initial note. Subjective: The patient was reviewed at treatment team meeting individually in the morning on 02/21/2022 with Leighann Isaac, Lianne Baires, and Heather Bonilla (social work case manager), and Yamilka, activity therapy, and Layla RN, discussed and reviewed the chart. The patient slept 7-1/2 hours previous night. The patients [id number] Calista attended the meeting. He has been making repeated statements that he has not seen a doctor since Friday in fact I have been seeing him on rounds every day and today I met with him at great length in his room and reminded him who I was. He is not accepting of it. Review of Systems: Ambulation impaired, in wheelchair. Hard of hearing. No CV, , pulmonary, eye system symptoms on review. Mental Status Exam: Patient is oriented to himself and situation. I met with him in his rom. He was in the bathroom but did come out of there to interact with me. He states he came here for surgery and he has not seen doctor since Friday and as mentioned above. Speech is rapid. Abstraction fair. Computation impaired. Language function intact. Mood and affect improved. Laboratory Data: Reviewed. Impression: Major depressive disorder. Impulse control disorder rule out bipolar disorder unspecified. Plan: Continue current psychotropics mentioned in my initial note. Adjust as clinically indicated. Calista boswell [id number] who is his power of tax attorney gave a very cogent history of marked mood lability, anxiety and irritability creating significant disruptive behaviors at the facility. We will start Depakote ER 500 mg p.o. h.s. Check CBC, CMP, valproic acid level in 3 days. Start Zoloft 25 mg a day for mood and anxiety symptoms, increasing to 50 mg at the end of 10 day. She attended one group in the past one week. Assessment: Vital Signs/I&O: Vital Signs Date Time Temp Pulse Resp B/P (MAP) Pulse Ox O2 Delivery O2 Flow Rate FiO2 02/22/22 16:27 97.2 72 20 142/82 (102) 98 02/20/22 06:12 Room Air I & O 02/21/22 02/21/22 02/22/22 15:00 23:00 07:00 Intake Total 580 ml 480 ml Balance 580 ml 480 ml Labs: Laboratory Tests Test 02/22/22 07:52 02/22/22 11:24 02/22/22 17:12 02/22/22 19:37 Glucose (Fingerstick) 123 mg/dL (70-99) H 106 mg/dL (70-99) H 147 mg/dL (70-99) H 237 mg/dL (70-99) H Current Medications: Meds: Current Medications Medications (Trade) Dose Ordered Sig/Hetal Route PRN Reason Start Time Stop Time Status Last Admin Dose Admin Sertraline HCl (Zoloft) 25 mg DAILY PO 02/22/22 09:00 02/24/22 23:50 02/22/22 07:27 I have reviewed the current psychotropics carefully including drug interactions. Risk benefit ratio favors no change other than as noted in my dictated progress note. Diagnosis: Problems: (1) Impulse control disorder (2) Psychotic disorder (3) Major depressive disorder ELADIO NUNEZ MD February 22, 2022 21:48
--- NOTE | 2022-02-22 22:04 | PDOC ---
Exam Note: Leonidas Note: Please also refer to the separate dictated note~for this date of service dictated separately.~Patient seen individually. Discussed the patient with Nursing staff reviewed the chart.~Reviewed interim history and current functioning. Reviewed vital signs,~Labs/ Radiology~and current medications noted below. Continue current treatment with the changes noted in the dictated addendum note Assessment: Vital Signs/I&O: Vital Signs Date Time Temp Pulse Resp B/P (MAP) Pulse Ox O2 Delivery O2 Flow Rate FiO2 02/22/22 16:27 97.2 72 20 142/82 (102) 98 02/20/22 06:12 Room Air I & O 02/21/22 02/21/22 02/22/22 15:00 23:00 07:00 Intake Total 580 ml 480 ml Balance 580 ml 480 ml Labs: Laboratory Tests Test 02/22/22 07:52 02/22/22 11:24 02/22/22 17:12 02/22/22 19:37 Glucose (Fingerstick) 123 mg/dL (70-99) H 106 mg/dL (70-99) H 147 mg/dL (70-99) H 237 mg/dL (70-99) H Current Medications: Meds: Laboratory Tests Test 02/22/22 07:52 02/22/22 11:24 02/22/22 17:12 02/22/22 19:37 Glucose (Fingerstick) 123 mg/dL 106 mg/dL 147 mg/dL 237 mg/dL Current Medications Medications (Trade) Dose Ordered Sig/Hetal Route PRN Reason Start Time Stop Time Status Last Admin Dose Admin Multi-Ingredient Ointment (Analgesic [place]) 1 monik PRN QID PRN TP MUSCLE PAIN 02/14/22 14:30 Al Hydroxide/Mg Hydroxide (Mylanta Plus Xs) 15 ml PRN AFTMEALHC PRN PO DYSPEPSIA 02/14/22 14:30 Magnesium Hydroxide (Milk Of Magnesia) 2,400 mg PRN QHS PRN PO CONSTIPATION 02/14/22 14:30 Acetaminophen (Tylenol) 1,000 mg PRN Q6HRS PRN PO pain or fever 02/14/22 14:30 Vitamin D (Vitamin D3) 5,000 unit DAILY PO 02/15/22 09:00 02/21/22 17:01 DC 02/20/22 08:07 Diphenoxylate HCl/ Atropine (Lomotil) 1 tab PRN Q6HRS PRN PO 2ND CHOICE DIARRHEA 02/14/22 14:30 Empaglifozin (Jardiance) 10 mg DAILY PO 02/15/22 09:00 02/22/22 07:27 Gabapentin (Neurontin) 300 mg TIDWMEALS PO 02/14/22 17:00 02/22/22 17:23 Lactase (Lactaid) 3,000 unit TIDWMEALS PO 02/14/22 17:00 02/22/22 17:23 Nitrofurantoin Macrocrystals (Macrobid) 100 mg BID PO 02/14/22 21:00 02/14/22 16:16 DC Lisinopril (Prinivil) 40 mg DAILY PO 02/15/22 09:00 02/22/22 07:28 Loperamide HCl (Imodium) 2 mg PRN Q12HR PRN PO 1ST CHOICE LOOSE STOOLS 02/14/22 15:00 Atorvastatin Calcium (Lipitor) 5 mg HS PO 02/14/22 21:00 02/22/22 20:00 Metformin HCl (Glucophage) 1,000 mg BIDWMEALS PO 02/14/22 17:00 02/22/22 17:23 Multivitamins/ Calcium (Thera-M Plus) 1 tab DAILY PO 02/15/22 09:00 02/22/22 07:27 Olanzapine (ZyPREXA ZYDIS) 2.5 mg PRN Q2HRS PRN PO PSYCHOSIS 02/15/22 17:30 Glimepiride (Amaryl) 2 mg DAILY PO 02/17/22 09:00 02/22/22 07:28 Sertraline HCl (Zoloft) 25 mg DAILY PO 02/22/22 09:00 02/24/22 23:50 02/22/22 07:27 Sertraline HCl (Zoloft) 50 mg DAILY PO 02/25/22 09:00 Divalproex Sodium (Depakote Er) 500 mg HS PO 02/21/22 21:00 02/22/22 20:00 Vitamin D (Vitamin D3) 50,000 unit WEEKLY PO 02/28/22 09:00 Current Medications Medications (Trade) Dose Ordered Sig/Hetal Route PRN Reason Start Time Stop Time Status Last Admin Dose Admin Sertraline HCl (Zoloft) 25 mg DAILY PO 02/22/22 09:00 02/24/22 23:50 02/22/22 07:27 I have reviewed the current psychotropics carefully including drug interactions. Risk benefit ratio favors no change other than as noted in my dictated progress note. Diagnosis: Problems: (1) Impulse control disorder (2) Psychotic disorder (3) Major depressive disorder ELADIO NUNEZ MD February 22, 2022 22:04
[2022-02-23 06:07] VITALS: BP 146/87
[2022-02-23] MEDS: GLIMEPIRIDE 2 MG TABLET PO SCH (07:14)
[2022-02-23] MEDS: LISINOPRIL 20 MG TABLET PO SCH (07:14)
[2022-02-23] MEDS: metFORMIN 500 MG TABLET PO SCH ×2 (07:14→16:05)
[2022-02-23] MEDS: EMPAGLIFLOZIN 10 MG TABLET. PO SCH (07:15)
[2022-02-23] MEDS: GABAPENTIN 300 MG CAPSULE. PO SCH ×3 (07:15→16:05)
[2022-02-23] MEDS: LACTASE 3,000 UNIT TABLET PO SCH ×3 (07:15→16:05)
[2022-02-23] MEDS: SERTRALINE 25 MG TABLET. PO SCH (07:15)
[2022-02-23] MEDS: MULTIVITAMIN with MINERAL TABLET. PO SCH (07:15)
--- NOTE | 2022-02-23 08:42 | PDOC ---
Exam Note: Leonidas Note: This note is a late entry for 02/22/2022 covers elements not covered in my initial note. Subjective: The patient was seen individually on 02/22/2022, discussed and reviewed the chart with Atiya SCHNEIDER. The patient slept 6 hours previous night, average sleep 7-1/2 hours. The patient has been isolative. Refused to come out to the dayroom. He complains there is no TV in his room but he will not come to the dayroom to watch TV because he does not want to sit with old people. He was isolative in his room, sitting with another male patient, compliant with medications. He is still obsessing that he came here for a surgery. I could explain to him no surgery was planned and we are adjusting his psychotropics for his moods. He was not fully accepting of it. Review of Systems: Ambulation impaired, in wheelchair. Hard of hearing. No CV, , pulmonary, eye system symptoms on review. Mental Status Exam: Patient is oriented to himself and situation. Speech coherent. Abstraction fair. Computation impaired. Language function intact. Mood and affect anxious. Laboratory Data: Reviewed. Impression: Major depressive disorder. Impulse control disorder rule out bipolar disorder unspecified. Plan: Continue current psychotropics mentioned in my initial note. Adjust as clinically indicated. Dr. Dawson will cover for me from 02/23/2022 until 03/12/2022. Assessment: Vital Signs/I&O: Vital Signs Date Time Temp Pulse Resp B/P (MAP) Pulse Ox O2 Delivery O2 Flow Rate FiO2 02/23/22 07:14 74 146/87 02/23/22 06:07 97.4 22 94 02/20/22 06:12 Room Air I & O 02/22/22 02/22/22 02/23/22 15:00 23:00 07:00 Intake Total 720 ml 440 ml Balance 720 ml 440 ml Labs: Laboratory Tests Test 02/22/22 11:24 02/22/22 17:12 02/22/22 19:37 02/23/22 07:29 Glucose (Fingerstick) 106 mg/dL (70-99) H 147 mg/dL (70-99) H 237 mg/dL (70-99) H 138 mg/dL (70-99) H Current Medications: Meds: Current Medications Medications (Trade) Dose Ordered Sig/Hetal Route PRN Reason Start Time Stop Time Status Last Admin Dose Admin Sertraline HCl (Zoloft) 25 mg DAILY PO 02/22/22 09:00 02/24/22 23:50 02/23/22 07:15 I have reviewed the current psychotropics carefully including drug interactions. Risk benefit ratio favors no change other than as noted in my dictated progress note. Diagnosis: Problems: (1) Impulse control disorder (2) Psychotic disorder (3) Major depressive disorder ELADIO NUNEZ MD February 23, 2022 08:42
[2022-02-23 15:52] VITALS: BP 124/76
[2022-02-23] MEDS: ATORVASTATIN CALCIUM 10 MG TABLET. PO SCH (19:48)
[2022-02-23] MEDS: DIVALPROEX ER 500 MG TAB.ER.24H PO SCH (19:48)
--- NOTE | 2022-02-24 03:19 | PN ---
DATE: 02/23/2022 SUBJECTIVE: The patient was seen today, met with the staff. Chart reviewed and also covering for Dr. Singh. The patient apparently is showing some improvement and is medication compliant, much calmer and cooperative with the staff. The patient is able to get out of his room, able to socialize, interacting with the staff and other residents. The patient has a history of sexually acting out behaviors in the past. Also, having frequent falls. The patient also somewhat labile and medication compliant. He seems to be functioning on the lower level of intellectual functioning. OBSERVATION: VITAL SIGNS: Temperature 97.4, blood pressure 146/87, pulse 74, respirations 22, O2 sat 94. GENERAL: Slept about 7 hours last night. The patient's appetite normal. LABORATORY DATA: The patient's lab reviewed. MEDICATIONS: The patient's medications include Zoloft 50 mg daily and 25 mg daily, Depakote 500 mg at night, gabapentin 300 mg 3 times a day and olanzapine 2.5 mg q. 2 hours p.r.n. ASSESSMENT: Major depressive disorder, impulse control disorder, unspecified. PLAN: Continue with the current treatment plan. LENGTH OF STAY: 5-[address]: Topher TID: [id number]
[2022-02-24 06:21] VITALS: BP 151/90
[2022-02-24] MEDS: LISINOPRIL 20 MG TABLET PO SCH (07:26)
[2022-02-24] MEDS: MULTIVITAMIN with MINERAL TABLET. PO SCH (07:26)
[2022-02-24] MEDS: metFORMIN 500 MG TABLET PO SCH ×2 (07:26→16:35)
[2022-02-24] MEDS: GLIMEPIRIDE 2 MG TABLET PO SCH (07:26)
[2022-02-24] MEDS: EMPAGLIFLOZIN 10 MG TABLET. PO SCH (07:26)
[2022-02-24] MEDS: LACTASE 3,000 UNIT TABLET PO SCH ×3 (07:26→16:35)
[2022-02-24] MEDS: GABAPENTIN 300 MG CAPSULE. PO SCH ×3 (07:26→16:35)
[2022-02-24] MEDS: SERTRALINE 25 MG TABLET. PO SCH (07:27)
[2022-02-24 07:38] LABS: BASO # 0.1 x10^3/uL (0.0-0.2); BASO % 1 % (0-3); EOS # 0.9 x10^3/uL (0.0-0.7); EOS % 10 % (0-3); HEMATOCRIT 42.7 % (39.0-53.0); HEMOGLOBIN 14.6 g/dL (13.0-17.5); LYMPH # 2.6 x10^3/uL (1.0-4.8); LYMPH % 28 % (24-48); MEAN CORPUSCULAR HEMOGLOBIN 31 pg (25-35); MEAN CORPUSCULAR HGB CONC 34 g/dL (31-37); MEAN CORPUSCULAR VOLUME 90 fL (79-100); MONO # 0.6 x10^3/uL (0.0-1.1); MONO % 6 % (0-9); NEUT # 5.1 x10^3uL (1.8-7.7); NEUT % 55 % (31-73); PLATELET COUNT 196 x10^3/uL (140-400); RED BLOOD COUNT 4.77 x10^6/uL (4.30-5.70); RED CELL DISTRIBUTION WIDTH 14.2 % (11.5-14.5); WHITE BLOOD COUNT 9.2 x10^3/uL (4.0-11.0)
[2022-02-24 07:58] LABS: ALBUMIN 3.5 g/dL (3.4-5.0); ALBUMIN/GLOBULIN RATIO 1.1 (1.0-1.7); ALK PHOS 75 U/L (46-116); ALT (SGPT) 40 U/L (16-63); ANION GAP 8 (6-14); AST (SGOT) 18 U/L (15-37); BLOOD UREA NITROGEN 23 mg/dL (8-26); BUN/CREATININE RATIO 26 (6-20); CALCIUM 9.4 mg/dL (8.5-10.1); CARBON DIOXIDE 28 mmol/L (21-32); CHLORIDE 103 mmol/L (98-107); CREATININE 0.9 mg/dL (0.7-1.3); GFR 82.7; GLUCOSE 112 mg/dL (70-99); POTASSIUM 4.3 mmol/L (3.5-5.1); SODIUM 139 mmol/L (136-145); TOTAL BILIRUBIN 0.6 mg/dL (0.2-1.0); TOTAL PROTEIN 6.6 g/dL (6.4-8.2)
[2022-02-24 08:03] LABS: VAL ACID 40 mcg/mL (50-100)
[2022-02-24] MEDS ORDERED: CHOLECALCIFEROL (VITAMIN D3) 50,000 UNIT CAPSULE PO SCH (09:00)
[2022-02-24 15:43] VITALS: BP 117/73
[2022-02-24] MEDS: DIVALPROEX ER 500 MG TAB.ER.24H PO SCH (19:55)
[2022-02-24] MEDS: ATORVASTATIN CALCIUM 10 MG TABLET. PO SCH (19:56)
--- NOTE | 2022-02-25 00:13 | PN ---
DATE: 02/24/2022 SUBJECTIVE: The patient was seen today, met with the staff. Chart reviewed and also covering for Dr. Singh. Staff reports no major behavior problems. He has been pleasant, compliant with the medications and assessments. OBSERVATION: VITAL SIGNS: Temperature 98.2, blood pressure 151/90, pulse 71, respirations 18, O2 sat 93%. GENERAL: Slept about 8 hours last night. The patient's appetite improved. CURRENT MEDICATIONS: Include Zoloft 50 mg daily and 25 mg daily, Depakote 500 mg at night, gabapentin 300 mg 3 times a day and olanzapine 2.5 mg q. 2 hours p.r.n. The patient is not having any side effects to medications. LABORATORY DATA: Reviewed. ASSESSMENT: 1. Major depressive disorder. 2. Impulse control disorder, unspecified. PLAN: To continue treatment. LENGTH OF STAY: Five to seven days. DEION DR: Topher TID: [id number]
[2022-02-25 06:01] VITALS: BP 152/80
[2022-02-25] MEDS: metFORMIN 500 MG TABLET PO SCH ×2 (08:10→17:17)
[2022-02-25] MEDS: GLIMEPIRIDE 2 MG TABLET PO SCH (08:10)
[2022-02-25] MEDS: GABAPENTIN 300 MG CAPSULE. PO SCH ×3 (08:10→17:17)
[2022-02-25] MEDS: MULTIVITAMIN with MINERAL TABLET. PO SCH (08:10)
[2022-02-25] MEDS: EMPAGLIFLOZIN 10 MG TABLET. PO SCH (08:10)
[2022-02-25] MEDS: LISINOPRIL 20 MG TABLET PO SCH (08:10)
[2022-02-25] MEDS: LACTASE 3,000 UNIT TABLET PO SCH ×3 (08:10→17:17)
[2022-02-25] MEDS: SERTRALINE 50 MG TABLET. PO SCH (08:14)
[2022-02-25 16:03] VITALS: BP 137/79
[2022-02-25] MEDS: DIVALPROEX ER 500 MG TAB.ER.24H PO SCH (20:06)
[2022-02-25] MEDS: ATORVASTATIN CALCIUM 10 MG TABLET. PO SCH (20:07)
[2022-02-26 06:20] VITALS: BP 132/83
[2022-02-26] MEDS: DIVALPROEX ER 250 MG TAB.ER.24H. PO SCH (07:56)
[2022-02-26] MEDS: MULTIVITAMIN with MINERAL TABLET. PO SCH (07:56)
[2022-02-26] MEDS: EMPAGLIFLOZIN 10 MG TABLET. PO SCH (07:56)
[2022-02-26] MEDS: SERTRALINE 50 MG TABLET. PO SCH (07:56)
[2022-02-26] MEDS: LISINOPRIL 20 MG TABLET PO SCH (07:56)
[2022-02-26] MEDS: GLIMEPIRIDE 2 MG TABLET PO SCH (07:57)
[2022-02-26] MEDS: LACTASE 3,000 UNIT TABLET PO SCH ×3 (07:57→16:15)
[2022-02-26] MEDS: GABAPENTIN 300 MG CAPSULE. PO SCH ×3 (07:57→16:15)
[2022-02-26] MEDS: metFORMIN 500 MG TABLET PO SCH ×2 (07:57→16:15)
--- NOTE | 2022-02-26 09:28 | PN ---
DATE: 02/25/2022 PSYCHIATRIC PROGRESS NOTE SUBJECTIVE: The patient was seen today, met with the staff. Chart reviewed and covering for Dr. Singh. Staff reports emotional lability, hyperactive, increased psychomotor activity, hyperverbal, occasionally get upset, get aggressive towards the staff. Overall, is pleasant and very talkative. OBSERVATION: VITAL SIGNS: Temperature 97.7, blood pressure 152/80, pulse 73, respirations 20, O2 sat 96%. GENERAL: Slept about 6 hours last night. LABORATORY DATA: The patient's lab reviewed. CURRENT MEDICATIONS: Include Zyprexa 2.5 mg, 2 hours p.r.n., gabapentin 300 mg 3 times a day, Zoloft daily, Depakote XR 500 mg at night and 250 mg daily. The patient is not having any side effects to the medications. ASSESSMENT: 1. Major depressive disorder. 2. Impulse control disorder, unspecified. 3. Mood disorder, unspecified. PLAN: To continue with the treatment. The patient's Depakote to be increased to 250 mg in the morning and 500 mg at night and check valproic acid level in 3 days. Also discussed in the treatment review meeting today with regard to discharge plans and exploring placement options. LENGTH OF STAY: Seven days. INOCENCIO DR: Topher TID: [id number] MTDD
[2022-02-26 16:12] VITALS: BP 144/79
[2022-02-26] MEDS: DIVALPROEX ER 500 MG TAB.ER.24H PO SCH (19:51)
[2022-02-26] MEDS: ATORVASTATIN CALCIUM 10 MG TABLET. PO SCH (19:52)
[2022-02-27 05:31] VITALS: BP 129/77
[2022-02-27] MEDS: LISINOPRIL 20 MG TABLET PO SCH (08:20)
[2022-02-27] MEDS: GABAPENTIN 300 MG CAPSULE. PO SCH ×3 (08:20→16:59)
[2022-02-27] MEDS: LACTASE 3,000 UNIT TABLET PO SCH ×3 (08:20→16:58)
[2022-02-27] MEDS: metFORMIN 500 MG TABLET PO SCH ×2 (08:20→16:59)
[2022-02-27] MEDS: DIVALPROEX ER 250 MG TAB.ER.24H. PO SCH (08:20)
[2022-02-27] MEDS: GLIMEPIRIDE 2 MG TABLET PO SCH (08:21)
[2022-02-27] MEDS: EMPAGLIFLOZIN 10 MG TABLET. PO SCH (08:21)
[2022-02-27] MEDS: MULTIVITAMIN with MINERAL TABLET. PO SCH (08:21)
[2022-02-27] MEDS: SERTRALINE 50 MG TABLET. PO SCH (08:21)
[2022-02-27 16:13] VITALS: BP 132/72
--- NOTE | 2022-02-27 16:31 | PN ---
DATE: 02/26/2022 SUBJECTIVE: The patient was seen today, met with the staff. Chart reviewed. I am covering for Dr. Singh. The patient's behavior remains the same, pleasant, compliant with the medications. Problems with boundaries at times and also tend to be impulsive at times. OBSERVATION: VITAL SIGNS: Temperature 97.1, blood pressure 144/79, pulse 75, respirations 20, O2 sat 94%. GENERAL: Slept about 7-1/2 hours last night. The patient's appetite normal. CURRENT MEDICATIONS: Include Depakote 250 mg daily and 500 mg at night, Zoloft 50 mg daily, olanzapine 2.5 mg q. 2 hours p.r.n., gabapentin 300 mg t.i.d. The patient is not having any side effects to the medications. LABORATORY DATA: The patient's lab reviewed. ASSESSMENT: 1. Major depressive disorder. 2. Impulse control disorder, unspecified. 3. Mood disorder, unspecified. PLAN: To continue with the treatment. LENGTH OF STAY: Seven days. GLORIA/HOLDEN/LINDA DR: Topher TID: [id number] MTDValentin
[2022-02-27] MEDS: DIVALPROEX ER 500 MG TAB.ER.24H PO SCH (20:38)
[2022-02-27] MEDS: ATORVASTATIN CALCIUM 10 MG TABLET. PO SCH (20:38)
[2022-02-28] MEDS ORDERED: GLIM1TAB PO (00:05)
[2022-02-28] MEDS ORDERED: CHOL500021 PO (00:05)
[2022-02-28] MEDS ORDERED: MAGN24003 PO (00:06)
[2022-02-28] MEDS ORDERED: DIVA500T4 PO (00:08)
[2022-02-28] MEDS ORDERED: DIVA250T PO (00:08)
[2022-02-28] MEDS ORDERED: SERT50TA PO (00:09)
[2022-02-28] MEDS ORDERED: OLAN5TAB99 PO (00:10)
[2022-02-28] MEDS ORDERED: MAG-124 PO (00:11)
[2022-02-28] MEDS ORDERED: METH114C3 TP (00:13)
--- NOTE | 2022-02-28 04:01 | PN ---
DATE: 02/27/2022 SUBJECTIVE: The patient was seen today, met with the staff. Chart was reviewed and I am covering for Dr. Singh. The patient's behavior remains the same, mostly pleasant, compliant, but tends to withdraw to his room. OBSERVATION: VITAL SIGNS: Temperature 97.5, blood pressure 129/77, pulse 69, respirations 18, O2 sat 92%. GENERAL: Slept about 7 hours last night. The patient's appetite is normal. CURRENT MEDICATIONS: Depakote 250 mg daily and 500 mg at night, Zoloft 50 mg daily, olanzapine 2.5 mg every 2 hours p.r.n., gabapentin 300 mg 3 times a day. The patient is not having any side effects to the medications. LABORATORY DATA: The patient's lab reviewed. ASSESSMENT: 1. Major depressive disorder. 2. Impulse control disorder, unspecified. 3. Mood disorder, unspecified. PLAN: To continue treatment. LENGTH OF STAY: [address]: Topher TID: [id number]
[2022-02-28 05:54] VITALS: BP 145/91
[2022-02-28] MEDS: MULTIVITAMIN with MINERAL TABLET. PO SCH (08:24)
[2022-02-28] MEDS: GLIMEPIRIDE 2 MG TABLET PO SCH (08:24)
[2022-02-28] MEDS: LACTASE 3,000 UNIT TABLET PO SCH (08:24)
[2022-02-28] MEDS: GABAPENTIN 300 MG CAPSULE. PO SCH (08:24)
[2022-02-28 08:25] VITALS: BP 145/91
[2022-02-28] MEDS: metFORMIN 500 MG TABLET PO SCH (08:25)
[2022-02-28] MEDS: SERTRALINE 50 MG TABLET. PO SCH (08:25)
[2022-02-28] MEDS: DIVALPROEX ER 250 MG TAB.ER.24H. PO SCH (08:25)
[2022-02-28] MEDS: LISINOPRIL 20 MG TABLET PO SCH (08:25)
[2022-02-28] MEDS: EMPAGLIFLOZIN 10 MG TABLET. PO SCH (08:25)
[2022-02-28] MEDS ORDERED: CHOLECALCIFEROL (VITAMIN D3) 50,000 UNIT CAPSULE PO SCH (09:00)
== END 2022-02-28 09:40 | disposition home or self-care (01) | DRG 881 ==
LOC: ER 10:39 → GEROPSY 14:06
PROVIDERS: ADMIT Psychiatry & Neurology Psychiatry; ATTEND Psychiatry & Neurology Psychiatry
DX: F32.9 Major depressive disorder, single episode, unspecified (principal); F63.9 Impulse disorder, unspecified; E78.5 Hyperlipidemia, unspecified; E11.9 Type 2 diabetes mellitus without complications; E55.9 Vitamin D deficiency, unspecified; F19.90 Other psychoactive substance use, unspecified, uncomplicated; G40.909 Epilepsy, unspecified, not intractable, without status epilepticus; H91.90 Unspecified hearing loss, unspecified ear; I10 Essential (primary) hypertension; J44.9 Chronic obstructive pulmonary disease, unspecified; R29.6 Repeated falls; Z66 Do not resuscitate; Z87.891 Personal history of nicotine dependence; Z97.14 Presence of artificial left leg (complete) (partial); Z20.822 Contact with and (suspected) exposure to COVID-19
CPT/HCPCS: 36415; 80053; 80061; 80164; 80184; 80185; 81001; 82306; 82553; 82947; 83036; 83540; 83550; 83735; 84436; 84443; 84480; 84484; 85025; 85379; 86592; 87428; 93005; U0003; 97530